=== PATIENT | male | born 1990 | race Caucasian/White ===

== ENCOUNTER 2016-12-01 18:26 | Emergency (ER) | payer OTHER ==
[~2016-12-01] VITALS: Ht 182.9 cm; Wt 94.3 kg
[2016-12-01 19:10] LABS: HEMATOCRIT 49.6 % (42.0-52.0); HEMOGLOBIN 16.9 gm/dL (14.0-18.0); MCH 31.2 pg (26.0-34.0); MCHC 34.2 % (28.0-37.0); MCV 91.3 fL (80.0-100.0); PLATELET COUNT 213 thou/uL (150-400); RBC 5.43 mil/uL (4.50-6.00); RDW 12.9 % (10.5-14.5); WBC 17.1 thou/uL (4.0-11.0)
[2016-12-01 19:11] LABS: MANUAL DIFF YES
[2016-12-01 19:16] LABS: CALCIUM 9.3 mg/dL (8.5-10.1); CREATININE 1.2 mg/dL (0.6-1.3); POTASSIUM 4.6 mmol/L (3.5-5.1)
[2016-12-01 19:22] LABS: ALBUMIN 4.7 g/dL (3.4-5.0); TOTAL BILIRUBIN 0.9 mg/dL (<0.1-1.0); TOTAL PROTEIN 8.2 g/dL (6.4-8.2)
[2016-12-01 19:36] LABS: ABSOLUTE NEUTROPHILS 14.9 thou/uL (1.4-8.2); ANISOCYTOSIS 1+; LARGE PLATELETS OCCASIONAL; TOTAL CELL COUNT 100
[2016-12-01] MEDS ORDERED: BENTYL 20 MG TA20 M1 PO (20:30)
[2016-12-01] MEDS ORDERED: ZOFRAN ODT4 MG PO (20:30)
[2016-12-01 20:58] LABS: URINE BLOOD NEGATIVE (Negative); URINE COLOR YELLOW; URINE GLUCOSE-RANDOM* NEGATIVE (Negative); URINE KETONES 3+ (Negative); URINE LEUKOCYTES-REFLEX NEGATIVE (Negative); URINE PROTEIN (DIPSTICK) NEGATIVE (Negative); URINE SPECIFIC GRAVITY 1.025 (1.003-1.035); URINE UROBILINOGEN 0.2 E.U./dl (0.2-1.0)
[2016-12-01 21:00] LABS: ICTOTEST (BILI CONFIRMATORY) Negative (Negative); URINE BILIRUBIN NEGATIVE (Negative)
[2016-12-01 21:08] VITALS: BP 105/67
== END 2016-12-01 21:10 | disposition home or self-care (01) ==
LOC: ER 18:26
PROVIDERS: Emergency Medicine
DX: R10.9 Unspecified abdominal pain (principal); Z88.1 Allergy status to other antibiotic agents